=== PATIENT | female | born 1990 | race Two or more races ===

== ENCOUNTER 2024-04-27 19:58 | Emergency (ER) | payer SELFPAY ==
[~2024-04-27] VITALS: Ht 170.2 cm; Wt 65.0 kg
[2024-04-27] MEDS ORDERED: HYDROcodone 5 MG/Acetaminophen 325 MG/COMBO PO ONE (21:00)
[2024-04-27] MEDS ORDERED: PENICILLIN G BENZATHINE 1.2 MU/2 ML SYR IM ONE (21:00)
[2024-04-27] MEDS ORDERED: DICLOFENAC SODIUM 75 MG/TAB PO ONE (21:00)
[2024-04-27] MEDS ORDERED: LORTAB 5/3255 MG PO (21:04)
[2024-04-27] MEDS ORDERED: NAPROXEN375 MG PO (21:04)
[2024-04-27 21:35] VITALS: BP 158/92
== END 2024-04-27 21:45 | disposition home or self-care (01) | DRG 159 ==
LOC: ED 19:58
DX: K04.7 Periapical abscess without sinus (principal); K02.9 Dental caries, unspecified; Z72.0 Tobacco use
CPT/HCPCS: J0561